=== PATIENT | male | born 1970 | race Caucasian/White ===

== ENCOUNTER 2018-03-27 23:30 | Observation (INO) | payer SELFPAY ==
[2018-03-28 00:16] VITALS: BMI 33.7
[2018-03-28] MEDS ORDERED: Ondansetron HCl/PF 4 MG/2 ML Vial IVP PRN (00:35)
[2018-03-28] MEDS ORDERED: Nitroglycerin 0.4 MG TAB (25 Tab Bottle) PO PRN (00:35)
[2018-03-28] MEDS ORDERED: Ondansetron ODT 4 MG TAB PO PRN (00:35)
[2018-03-28] MEDS ORDERED: Acetaminophen 325 MG TAB PO PRN (00:35)
--- NOTE | 2018-03-28 00:43 | PDOC.FPRHP ---
- History of Present Illness Chief Complaint: chest pain History of Present Illness: Patient is a 47 yo M with PMH significant for CO requiring CABG in December 2017, sent from [facility] ED for atypical chest pain. Patient began having chest "pressure" around 1900. SOB was associated with the pressure as well as as " cold feeling." Patient states it felt like something was "squeezing his windpipe " and he could only take short breaths. States this pain is different from the pain when he had his CO. Patient denies diaphoresis during the episode. The pressure was substernal and did not radiate anywhere. The patient denies palpitations but states that he felt his heart "beating hard." The patient has had a cough for about 2weeks that began dry and has started to become productive. The patient saw a doctor earlier this week who gave him a zpack for the cough. Patient has had swelling in the right leg from where they took the vein for this CABG. In the ED, patient had abnormal EKG X 2, initial Trop neg, and CXR showing small effusion in lower left lung. Patients symptoms overall have improved. The patient denies fever or NVD. - Allergies/Adverse Reactions Allergies Allergy/AdvReac Type Severity Reaction Status Date / Time Penicillins Allergy Severe Anaphylaxis Verified 03/28/18 00:21 Androgenic Anabolic Steroid AdvReac Intermediate Verified 03/28/18 00:21 tramadol AdvReac Verified 03/28/18 00:21 - Home Medications Medication Instructions Recorded Confirmed Type Aspirin [Aspirin Chewable] 81 mg PO DAILY 03/28/18 03/28/18 History Atorvastatin Calcium [Lipitor] 40 mg PO DAILY 03/28/18 03/28/18 History Carvedilol [Coreg] 12.5 mg PO DAILY 03/28/18 03/28/18 History Clopidogrel Bisulfate [Plavix] 75 mg PO DAILY 03/28/18 03/28/18 History Furosemide [Lasix] 40 mg PO DAILY 03/28/18 03/28/18 History Lisinopril 20 mg PO DAILY 03/28/18 03/28/18 History Pioglitazone HCl [Actos] 30 mg PO DAILY 03/28/18 03/28/18 History glipiZIDE [glipiZIDE XL] 5 mg PO QAM- 03/28/18 03/28/18 History metFORMIN [Glucophage] 500 mg PO BID- 03/28/18 03/28/18 History - History PMHx: CO s/p CABG in December 2017, DM, HTN, pleurisy PSHx: CABG 12/2017, appendectomy FHx: noncontributory Social: quit smoking 3 mo ago - smoked 1 pack/day for 26 years; drinks liquor occasionally; denies drug use - Review of Systems General: reports: fatigue. denies: fever/chills, weight/appetite/sleep changes , night sweats Eyes: denies: eye pain, vision changes ENT: denies: nasal congestion, rhinorrhea Respiratory: reports: cough, congestion, shortness of breath. denies: exercise intolerance Cardiovascular: reports: chest pain, edema (to right leg where vein was removed for CABG). denies: palpitation, paroxysmal nocturnal dyspnea, orthopnea Gastrointestinal: denies: nausea, vomiting, diarrhea, constipation, abdominal pain Genitourinary: denies: incontinence, dysuria Skin: denies: rashes, lesions, jaundice Musculoskeletal: denies: pain, tenderness, stiffness Neurological: denies: numbness, syncope, seizure Psychological: denies: anxiety, depression - Vital signs BP: 125/85 HR: 88 RR: 16 Tmax: 98 Pox: 94% on RA Wt: 116.21kg - Physical Exam Constitutional: NAD, awake, alert and oriented, well developed HEENT: normocephalic and atraumatic, PERRLA, EOMI, grossly normal vision, grossly normal hearing, MMM Neck: supple, no JVD -Chest: Mildly TTP around midline incision Heart: RRR, normal S1/S2, no murmurs/rubs/gallops, pulses present, no edema Lungs: CTAB, no respiratory distress, good air movement, no retractions Abdomen: soft, non-tender, bowel sounds present Musculoskeletal: normal structure, normal tone, ROM grossly normal Neurological: no focal deficit, CN II-XII intact Skin: no rash/lesions, good turgor Psychiatric: normal mood and affect FMR H&P: Results - Labs Result Diagrams: 03/28/18 05:49 03/28/18 00:44 - EKG Interpretation EKG: abnormal EKG X 2 at ED - Radiology Interpretation Chest x-ray Additional comment: Small effusion in lower left lung FMR H&P: A/P - Problem List (1) Atypical chest pain Current Visit: Yes Status: Acute Code(s): R07.89 - OTHER CHEST PAIN (2) HTN (hypertension) Current Visit: Yes Status: Acute Code(s): I10 - ESSENTIAL (PRIMARY) HYPERTENSION (3) Pleurisy with effusion Current Visit: Yes Status: Acute Code(s): J90 - PLEURAL EFFUSION, NOT ELSEWHERE CLASSIFIED (4) Diabetes Current Visit: Yes Status: Acute Code(s): E11.9 - TYPE 2 DIABETES MELLITUS WITHOUT COMPLICATIONS (5) GERD (gastroesophageal reflux disease) Current Visit: Yes Status: Acute Code(s): K21.9 - GASTRO-ESOPHAGEAL REFLUX DISEASE WITHOUT ESOPHAGITIS - Plan 1. Atypical Chest pain - Likely 2/2 recent CABG surgery vs HTN - Patient admitted to tele/Obs for Chest pain r/o - Pt currently in no pain - Initial Trop (-): Will Repeat troponin - Initial abnormal EKG: Will repeat - Nitro PRN, give ASA in morning, resume cardiac home meds 2. Pleurisy - likely 2/2 to recent CABG surgery - condition stable right now - O2 PRN to keep O2 sat > 90% - CXR revealed small left effusion; will continue to monitor resp status 3. HTN - pt had not taken his BP medications tonight - Will restart home meds - Will add PRN hydralazine for SBP > 180 as pt initial BP at the ED was 185 - Will continue to monitor BPs 4. DM - Will hold diabetes medications tonight as patient's glucose was 101 and patient is now NPO - Will restart home meds tomorrow AM - hold glipizide due to side effect of hypoglycemia - Will continue to check glucose levels 5. GERD - Will restart PPI Disposition/LOS: DISPO: likely discharge home tomorrow pending negative work up CODE: FULL Case discussed with Dr. Patel FMR H&P: Upper Level - Pertinent history 47 y/o M with CAD s/p CABG in December presents from outside ER with chest discomfort. Pt states just before dinner he had a sensation that his throat was closing and he became SOB. Associated chest tightness and cold feeling. Pt says the pain continued and he went to the ED. There, he was noted to have an abnormal EKG x2 with improved symptoms. His CXR showed cardiomegaly and small L effusion, and initial cardiac markers WNL. He denies any chest pain or radiating pain. He did admit to feeling like his sugar was low and ate some candy prior to ED. Currently he states he has slight chest tightness that is mild. Also admits to being tired. Of note, he was recently on Azithromycin and admitted to a cough 2 weeks ago that has been lingering and recent history of pleurisy after the CABG. - Pertinent findings GEN: NAD CARDIO/chest: RRR, no MRG. Midline scar w/o TTP RESP: LUNGS CTA, no wheezes or ronchi Extremities: no edema, pulses strong Neuro: no focal deficits, CN intact PSYCH: A&O x4, thoughts normal - Plan Date/Time: 03/28/18 0039 I, Jose Rafael Ugalde, have evaluated this patient and agree with findings/plan as outlined by software intern resident. Pertinent changes/additions are listed here. # Atypical Chest Pain- Likely discomfort related to previous CT surgery 3 months ago, but patient has significant RFs. Has had neg troponins x1 and normal CXR in ED with much improved symptoms upon arrival. His severely elevated BPs may also be contributing to his discomfort. Trend trops and repeat EKG. Control vitals. NPO and telemetry for monitoring overnight. # Hypertension Recorded SBP 185 at outside hospital. Will add PRN and home medications with a goal of SBP<180. Continue to monitor through the night. Controlled Currently. # NIDMT2- Will restart home medications. Hold Glipizide as pt has been hypoglycemic (101) and is now NPO. # GERD Resume PPI # FEN/PPX: NPO until morning, Replete lytes as needed. Lovenox for DVT ppx Attending Addendum - Attending Addendum Date/Time: 03/28/18 8861 I personally evaluated the patient and discussed the management with Dr. Godfrey I agree with the History, Examination, Assessment and Plan documented above with any addition or exceptions noted below. 47 yo diabetic male s/p 3 vessel CABG [facility], [place] December patient on cardiac rehab had pleurisy Dx at 6 weeks post op. Patient with atypical CP starting out as sequence of symptoms related initially to hypogylcemia. After peanut butter crackers and candy bar felt airway closing and difficult to take deep breath. Patient evaluated in outside ER center with atypical CP and EKG with abnormal EKG with borderline St segment elevation in non contigiuos chest leads leads by history. Troponins negative PMHX remote HX GERD ,JESSICA with intermittent CPAP use , former smoker, diabetes and hypertension x 3 years. Patient lives in [place], [place] his PCP is [facility] Civil[facility] provider in [place], [place]. Will admit trend EKG and troponin PE notable for friction rub at precordium near PMI will need continued pleurisy treatment and appreciate rec from Cardiology consultation. Consider echocardiogram.
[2018-03-28] MEDS: Nitroglycerin 2% Ointment 1 INCH/1 GM Packet TOP SCH ×3 (00:57→16:27)
[2018-03-28] MEDS ORDERED: hydrALAZINE 20 MG/ML VIAL SLOW IVP PRN ×3 (01:05→01:10)
[2018-03-28 01:12] LABS: ALT (SGPT) 27 U/L (8-55); AST (SGOT) 25 U/L (5-34); Albumin 4.2 g/dL (3.5-5.0); Alkaline Phosphatase 79 U/L (40-150); Anion Gap 14 mmol/L (10-20); BUN (Urea Nitrogen) 12 mg/dL (8.9-20.6); Bilirubin, Total 0.5 mg/dL (0.2-1.2); Calc. Creatinine Clearance 181 mL/min (70-130); Calcium 9.2 mg/dL (7.8-10.44); Carbon Dioxide 24 mmol/L (22-29); Chloride 107 mmol/L (98-107); Estimated GFR-MDRD Greater than 90; Glucose 90 mg/dL (70-105); Potassium 3.7 mmol/L (3.5-5.1); Protein, Total 7.2 g/dL (6.0-8.3); Sodium 141 mmol/L (136-145)
[2018-03-28] MEDS ORDERED: Enoxaparin Sodium 40 MG/0.4 ML SYRINGE SC SCH (01:15)
[2018-03-28 04:39] LABS: CKMB 1.1 ng/mL (0-6.6); Troponin I Less than 0.010 ng/mL (< 0.028)
[2018-03-28 04:44] LABS: CKMB 1.1 ng/mL (0-6.6)
--- NOTE | 2018-03-28 06:13 | PDOC.FM ---
- Subjective Subjective: No acute events overnight. Denies chest pain, headache, SOB, lightheadedness. - Objective MAR Reviewed: Yes Vital Signs & Weight: Vital Signs (12 hours) Temp Pulse Resp BP Pulse Ox 03/28/18 04:30 97.7 F 68 16 141/94 H 95 03/28/18 00:46 98.0 F 88 16 03/27/18 23:41 98.0 F 88 16 126/85 94 L Weight Weight 116.21 kg I&O: 03/26/18 03/27/18 03/28/18 06:59 06:59 06:59 Intake Total 20 Output Total 400 Balance -380 Result Diagrams: 03/28/18 05:49 03/28/18 00:44 <Yanna Arceo - Last Filed: 03/28/18 11:21> - Objective Vital Signs & Weight: Vital Signs (12 hours) Temp Pulse Resp BP BP Pulse Ox 03/28/18 13:41 169/94 H 03/28/18 12:03 72 28 H 178/95 H 97 03/28/18 08:11 98.6 F 76 20 165/94 H 96 03/28/18 08:00 97.7 F 68 16 03/28/18 04:30 97.7 F 68 16 141/94 H 95 Weight Weight 116.21 kg I&O: 03/27/18 03/28/18 03/29/18 06:59 06:59 06:59 Intake Total 20 Output Total 400 Balance -380 Result Diagrams: 03/28/18 05:49 03/28/18 00:44 <Jack Patel - Last Filed: 03/28/18 14:14> Phys Exam - Physical Examination Constitutional: NAD Neck: supple Respiratory: no wheezing friction rub on auscultation, increased with inspiration Gastrointestinal: soft, non-tender Musculoskeletal: no edema Neurological: moves all 4 limbs Psychiatric: A&O x 3 <Yanna Arceo - Last Filed: 03/28/18 11:21> Dx/Plan (1) Atypical chest pain Code(s): R07.89 - OTHER CHEST PAIN Status: Acute (2) Diabetes Code(s): E11.9 - TYPE 2 DIABETES MELLITUS WITHOUT COMPLICATIONS Status: Acute (3) HTN (hypertension) Code(s): I10 - ESSENTIAL (PRIMARY) HYPERTENSION Status: Acute (4) Pleurisy with effusion Code(s): J90 - PLEURAL EFFUSION, NOT ELSEWHERE CLASSIFIED Status: Acute - Plan Plan: 47 yo M with s/p NE with CABG on 12/2017 here with chest pain and SOB 1. Atypical chest pain s/p NE with CABG -CE (-) x3 -Per prior note, abnormal EKG (no records posted in EMR yet): for now will follow up with pending EKG -Continue cardiac home meds but hold coreg for possible NST -Nitroglycerin prn for pain, continue home aspirin and clopidogrel -Dr. Millan consulted, recommendations kindly appreciated -Will hold off on NST and keep NPO pending cardiology recommendations 2. HTN -Restarted home lasix & lisinopril -Currently on Hydralazine PRN 3. History of hypoglycemia 2/2 glipizide -Glucose have been low since admission 101 --> 75 -Discontinued glipizide due to high risk of hypoglycemia 4. HLD -Continue home statin 5. DM -Increased metformin to 1000mg po BID and will continue -Continue pioglitazone -Both meds have low risk of hypoglycemia Dispo: Follow Dr. Millan rx, possible discharge Plan discussed with Dr. Patel <Yanna Arceo - Last Filed: 03/28/18 11:21> (1) Atypical chest pain Code(s): R07.89 - OTHER CHEST PAIN Status: Acute (2) HTN (hypertension) Code(s): I10 - ESSENTIAL (PRIMARY) HYPERTENSION Status: Acute (3) Pleurisy with effusion Code(s): J90 - PLEURAL EFFUSION, NOT ELSEWHERE CLASSIFIED Status: Acute (4) Diabetes Code(s): E11.9 - TYPE 2 DIABETES MELLITUS WITHOUT COMPLICATIONS Status: Acute (5) GERD (gastroesophageal reflux disease) Code(s): K21.9 - GASTRO-ESOPHAGEAL REFLUX DISEASE WITHOUT ESOPHAGITIS Status: Acute <Jack Patel - Last Filed: 03/28/18 14:14> Attending Addendum - Attending Addendum Date/Time: 03/28/18 9683 I personally evaluated the patient and discussed the management with Dr. Arceo I agree with the History, Examination, Assessment and Plan documented above with any addition or exceptions noted below.Await discharge planning until Dr Millan has evaluated patient for any further rec. <Jack Patel - Last Filed: 03/28/18 14:14>
[2018-03-28 06:28] LABS: CKMB 1.3 ng/mL (0-6.6); Troponin I Less than 0.010 ng/mL (< 0.028)
[2018-03-28 06:30] LABS: #Eosinphils 0.1 thou/uL (0.0-0.7); #Lymphocytes 2.5 thou/uL (1.20-3.40); #Monocytes 0.5 thou/uL (0.11-0.59); #Neutrophils 2.4 thou/uL (1.40-6.50); %Basophils 0.3 % (0.0-1.0); %Eosinophils 2.3 % (0.0-10.0); %Lymphocytes 45.1 % (21.0-51.0); %Monocytes 8.5 % (0.0-10.0); %Neutrophils 43.8 % (42.0-75.0); Hemoglobin 13.5 g/dL (14.0-18.0); Mean Corpuscular HGB CONC 34.7 g/dL (32.0-36.0); Mean Corpuscular Hemoglobin 31.4 pg (27.0-31.0); Mean Corpuscular Volume 90.3 fL (78.0-98.0); Mean Platelet Volume 7.6 fL (7.4-10.4); Platelet Count 127 thou/uL (130-400); RBC Distribution Width 12.7 % (11.5-14.5); Red Blood Cell (RBC) Count 4.31 mill/uL (4.70-6.10); White Blood Cell (WBC) Count 5.4 thou/uL (4.8-10.8)
[2018-03-28] MEDS ORDERED: Lisinopril 20 MG TAB PO SCH (09:00)
[2018-03-28] MEDS ORDERED: diphenhydrAMINE 50 MG CAP PO PRN (12:26)
[2018-03-28] MEDS ORDERED: Lidocaine 2% Viscous Solution 20 ML, Aluminum & Magnesium Hydroxide 30 ML, Donnatal Eli... SSW SCH (12:30)
--- NOTE | 2018-03-28 12:50 | PDOC.EVN ---
Event Note - Event Note Event Note: 03/28 @ noon: Nurse called saying patient was re-experiencing same chest pressure and feeling SOB. [place]. O2 was started. Went to examine patient, lungs were clear , saturation at 97%. Complained of "something stuck in his throat making it hard to breathe." Denied anxiety, nausea, abdominal pain, chest pain, dysphagia , reflux. Tele strip was unchanged from 1 hour prior to current episode. Stat EKG ordered which was unchanged from EKG at admission (presence of q waves, no ST elevations). Patient said benadryl helped with symptoms last night. Plan to give pt. GI cocktail & benadryl now and will continue monitoring.
[2018-03-28] MEDS ORDERED: ISOVUE-370 76%-LOCM 1 ML ONE (12:51)
[2018-03-28 13:12] LABS: CKMB 1.4 ng/mL (0-6.6); Troponin I Less than 0.010 ng/mL (< 0.028)
[2018-03-28] MEDS: Furosemide 40 MG TAB PO SCH (13:42)
[2018-03-28] MEDS: Atorvastatin Calcium 40 MG TAB PO SCH (13:42)
[2018-03-28] MEDS: Carvedilol 6.25 MG TAB PO SCH (16:23)
[2018-03-28] MEDS: metFORMIN 500 MG TAB PO SCH (16:25)
[2018-03-28] MEDS: hydrALAZINE 25 MG TAB PO SCH (20:20)
--- NOTE | 2018-03-28 20:34 | CT ---
CTA THORAX WITH CONTRAST: (Computed Tomographic Angiography, chest(noncoronary) with contrast material, and image post processi ng) (PE protocol) DATE: 03/28/2018 TIME: 7:44 p.m. HISTORY: A 47-year-old male with dyspnea and pleuritic chest pain. TECHNIQUE: IV injection of iodinated contrast: Isovue-370 100 mL. Scan acquisition timing attempted to coincide with iodinated contrast bolus reaching maximal density in pulmonary arteries. 3D MIP reconstructions. FINDINGS: There is a left free layering pleural fluid collection that occupies approximately 20% volume of the left hemithoracic cavity. It has moderately high attenuation of 27 HU, suggesting that it may be blo od. No thoracic aortic aneurysm or dissection. Bovine origin of the left common carotid artery from the brachiocephalic artery. Atypically far posterior origin of the left subclavian artery from the aortic arch. Retrosternal hematoma from recent CABG. Sternotomy wires. Nonunited sternotomy defect . Small pericardial effusion. No right-sided pleural effusion or pneumothorax. Atelectasis of all the basilar segments of the left lower lobe. Subsegmental atelectasis in the posterior segment of th e right upper lobe. Trachea and major bronchi are patent and clear. Mild narrowing of the left main stem bronchus. No thoracic aortic aneurysm or dissection. No evidence of pulmonary thromboembolism. IMPRESSION: 1. Left free layering pleural fluid collection is suspected to be hemothorax. 2. No pulmonary thromboembolism. 3. Recently status post coronary artery bypass graft surgery, with small to moderate sized retroster nal anterior mediastinal hematoma. 4. Atelectasis of left lower lobe. anastacio[] POS: [facility]
[2018-03-29] MEDS: Nitroglycerin 2% Ointment 1 INCH/1 GM Packet TOP SCH ×2 (00:28→09:22)
--- NOTE | 2018-03-29 01:40 | CON ---
DATE OF CONSULTATION: 03/28/2018 HISTORY OF PRESENT ILLNESS: Ryan Carey is a 47-year-old white male, who underwent bypass surgery in 12/2017 at [facility] in [place]. He started having chest pain one week prior to that. He described this as a pressure in his chest that would radiate to his left neck and left ear. This would occur with or without exertion and would initially last 1-2 minutes. He then had an episode that lasted hours and went to the emergency room in [place]. He was told that he had a myocardial infarction and ultimately underwent CABG x3. He states he has not had any recurrence of the type of discomfort that he had that took him to the hospital in December. He has been doing very well until the past 2-3 weeks when he has developed a nonproductive cough. He has gone through a round of a Z-Yamil without resolution of his cough. He then had a different type episode yesterday where he felt as if he could not take a deep breath and had some pressure in the central part of his chest, but he said this was nothing like he had prior to his bypass. The pain was somewhat pleuritic in nature. This lasted approximately 1-1/2 hours. Later, he felt as if he was trying to suck air through the straw and feeling that his airway may have been closing. He ultimately went to [facility] Emergency Room and was evaluated then transferred here. He denies any recurrence of his chest discomfort. PAST MEDICAL HISTORY: Hypertension, poorly controlled; hypercholesterolemia; and diabetes. MEDICATIONS: Carvedilol 12.5 mg daily, aspirin 81 daily, Plavix 75 mg daily, atorvastatin 40 daily, furosemide 40 q.a.m., glipizide 5 mg q.a.m., lisinopril 20 daily (he states he has been on this for several years), metformin 500 b.i.d. and Actos 30 daily. ALLERGIES: PENICILLIN, ANABOLIC STEROIDS, TRAMADOL. OPERATIONS: CABG and appendectomy. SOCIAL HISTORY: Smoked less than 1 pack per day, but stopped at the time of bypass surgery. He occasionally drinks. FAMILY HISTORY: Negative for myocardial infarction, CABG or sudden in the immediate family. REVIEW OF SYSTEMS: Twelve-point review of systems otherwise unremarkable. PHYSICAL EXAMINATION: VITAL SIGNS: Blood pressure 169/94, pulse 72. HEENT: PERRL. NECK: Supple. CHEST: Clear. CARDIOVASCULAR: S1, S2 normal, without any S3, S4 or murmurs. Carotid upstrokes normal, without bruits. ABDOMEN: Normal bowel sounds, without tenderness, organomegaly or masses. EXTREMITIES: Revealed no clubbing, cyanosis or edema. NEUROLOGIC: Grossly intact. SKIN: Warm and dry. LABORATORY DATA: EKG revealed normal sinus rhythm and evidence for anterior septal infarct and inferior infarct. Hemoglobin 13.5, hematocrit 38.9, white count 5400, platelets 127,000. Cardiac enzymes x4 are normal. Sodium 141, potassium 3.7, chloride 107, carbon dioxide 24, BUN 12, creatinine 0.83, glucose 101. IMPRESSION: 1. Cough for 2-3 weeks without improvement after a Z-Yamil and now symptoms of feeling of his airway is closing. My initial concern is that these symptoms may be due to lisinopril. I do not feel that his discomfort is directly cardiac related. 2. Recent chest discomfort, which is atypical compared to his pain prior to bypass surgery. He apparently had a left pleural effusion on chest x-ray. Also , I am somewhat concerned with some of the pleuritic type pain that he had and this may be related to pulmonary embolism. Also, pericardial effusion needs to be ruled out with his symptoms with an echocardiogram. 3. Hypertension, difficult to control. He is on a somewhat unusual regimen of only carvedilol once a day and not twice a day. 4. Diabetes. 5. Hypercholesterolemia. 6. Former smoker. PLAN: Lisinopril will be discontinued. I would probably also avoid any ARB drugs with the possibility laryngospasm. Instead, he will be placed on hydralazine 25 t.i.d. and the carvedilol dose will be increased from 12.5 mg daily to 12.5 mg b.i.d. Echocardiogram will be performed to rule out pericardial effusion. He also will undergo a chest CTA to rule out pulmonary emboli as well as to have limited better assessment of his left pleural effusion. MARIBEL
[2018-03-29 05:00] LABS: #Eosinphils 0.2 thou/uL (0.0-0.7); #Lymphocytes 2.7 thou/uL (1.20-3.40); #Monocytes 0.6 thou/uL (0.11-0.59); #Neutrophils 3.4 thou/uL (1.40-6.50); %Basophils 0.5 % (0.0-1.0); %Eosinophils 2.5 % (0.0-10.0); %Lymphocytes 39.2 % (21.0-51.0); %Monocytes 8.6 % (0.0-10.0); %Neutrophils 49.3 % (42.0-75.0); Mean Corpuscular Hemoglobin 31.5 pg (27.0-31.0); Mean Corpuscular Volume 90.2 fL (78.0-98.0); Mean Platelet Volume 7.3 fL (7.4-10.4); Platelet Count 142 thou/uL (130-400); RBC Distribution Width 12.8 % (11.5-14.5); Red Blood Cell (RBC) Count 4.44 mill/uL (4.70-6.10); White Blood Cell (WBC) Count 6.9 thou/uL (4.8-10.8)
--- NOTE | 2018-03-29 05:49 | PDOC.FM ---
- Subjective Subjective: Pt. states his main complaint was upper chest pressure that makes it hard to breath. He denies a history of asthma or COPD. He had been taking lisinopril. He states he use to have bad GERD now he just has an occational episode. Denies trouble swallowing even during an episode. This morning he has no complaints. Denies chest pain, sob, dyspnea, headaches. - Objective MAR Reviewed: Yes Vital Signs & Weight: Vital Signs (12 hours) Temp Pulse Resp BP BP Pulse Ox 03/29/18 04:07 98.1 F 83 20 131/80 92 L 03/28/18 20:20 77 137/82 03/28/18 20:00 98.5 F 86 20 03/28/18 18:28 98.5 F 86 20 116/63 92 L Weight Weight 114.714 kg I&O: 03/27/18 03/28/18 03/29/18 06:59 06:59 06:59 Intake Total 20 950 Output Total 400 2400 Balance -380 -1450 Result Diagrams: 03/29/18 04:45 03/29/18 05:36 <Santos Teresa - Last Filed: 03/29/18 08:48> - Objective Vital Signs & Weight: Vital Signs (12 hours) Temp Pulse Resp BP Pulse Ox 03/29/18 14:18 70 03/29/18 11:13 97.9 F 70 22 H 133/75 93 L Weight Weight 114.714 kg I&O: 03/28/18 03/29/18 03/30/18 06:59 06:59 06:59 Intake Total 20 1190 Output Total 400 2700 Balance -380 -1510 Result Diagrams: 03/29/18 04:45 03/29/18 05:36 <Celeste Robert - Last Filed: 03/29/18 21:38> Phys Exam - Physical Examination Constitutional: NAD HEENT: PERRLA, moist MMs Neck: no JVD, full ROM No pain to palpation of neck, no lypmh nodes present Coarse lung sounds, diffuse rhonchi, worse with expiration Cardiovascular: RRR, no significant murmur Gastrointestinal: soft, non-tender, no distention, positive bowel sounds Musculoskeletal: no edema, pulses present Neurological: normal sensation, moves all 4 limbs Psychiatric: normal affect, A&O x 3 Skin: normal turgor, cap refill <2 seconds <Santos Teresa - Last Filed: 03/29/18 08:48> Dx/Plan (1) Atypical chest pain Code(s): R07.89 - OTHER CHEST PAIN Status: Acute (2) Diabetes Code(s): E11.9 - TYPE 2 DIABETES MELLITUS WITHOUT COMPLICATIONS Status: Acute (3) GERD (gastroesophageal reflux disease) Code(s): K21.9 - GASTRO-ESOPHAGEAL REFLUX DISEASE WITHOUT ESOPHAGITIS Status: Acute (4) HTN (hypertension) Code(s): I10 - ESSENTIAL (PRIMARY) HYPERTENSION Status: Acute - Plan Plan: This is a 47 yo male with PMH of AL s/p cabg 12/2017, DM, HTN Atypical chest pain -Troponins neg x3, EKG abnormal, will continue monitoring. Pt. recently diagnosed with pelurisy. CP may be related to suspected hemothorax vs. GERD. Will discuss with pt. how his pain improved with benadryl and GI cocktail yesterday. May be associated with ACEi vs. GERD vs. reactive airway changes Recent hx of AL s/p CABG -Will continue cardiac home meds this morning Pleurisy -Likely related to CABG. CTA shows small to moderate retrosternal anterior mediastinal hematoma as well as possible hemothorax. Both likely related to CABG and may be the source of the chest pain. HTN -Restarting home meds. PRN hydralazine added, last dose given at 2020 last night. Vitals currently stable DM -Monitor glucose, SSI, NPO, holding home meds currently GERD -Continue PPI Code: FULL Family: none at bedside Prophylaxis: lovenox Disposition: home in 1-2 days <Santos Teresa - Last Filed: 03/29/18 08:48> Attending Addendum - Attending Addendum Date/Time: 03/29/18 5622 I personally evaluated the patient and discussed the management with Dr. Teresa I agree with the History, Examination, Assessment and Plan documented above with any addition or exceptions noted below. Chest pain: Appears related to pericarditis per cards. Will treat with NSAIDs. Cough/congestion: Appears to have allergic rhinitis. Will start mucolytic and singulair. Dispo pending cards rec ABrayMD <Celeste Robert - Last Filed: 03/29/18 21:38>
[2018-03-29 05:58] LABS: Albumin 4.3 g/dL (3.5-5.0); Chloride 106 mmol/L (98-107); Potassium 3.8 mmol/L (3.5-5.1)
[2018-03-29 05:59] LABS: Calcium 9.4 mg/dL (7.8-10.44); Sodium 140 mmol/L (136-145)
[2018-03-29 06:00] LABS: Glucose 111 mg/dL (70-105); Protein, Total 7.3 g/dL (6.0-8.3); Triglycerides 177 mg/dL (Less than 150)
[2018-03-29 06:01] LABS: Anion Gap 15 mmol/L (10-20); Carbon Dioxide 23 mmol/L (22-29)
[2018-03-29 06:02] LABS: Bilirubin, Total 0.5 mg/dL (0.2-1.2)
[2018-03-29 06:03] LABS: Alkaline Phosphatase 81 U/L (40-150); Calc. Creatinine Clearance 154 mL/min (70-130); Estimated GFR-MDRD 84
[2018-03-29 06:04] LABS: BUN (Urea Nitrogen) 16 mg/dL (8.9-20.6)
[2018-03-29 06:05] LABS: AST (SGOT) 24 U/L (5-34); Cardiac Risk 3.4 (Less than 4.5); Cholesterol 127 mg/dl (< 200 Desired); HDL Cholesterol 37 mg/dL (>60 Neg Risk); LDL Cholesterol, Calculated 55 mg/dL
[2018-03-29 06:06] LABS: ALT (SGPT) 30 U/L (8-55)
[2018-03-29] MEDS ORDERED: Clopidogrel Bisulfate 75 MG TAB PO SCH (09:00)
[2018-03-29] MEDS ORDERED: Pioglitazone HCl 15 MG TAB PO SCH (09:00)
[2018-03-29] MEDS: hydrALAZINE 25 MG TAB PO SCH ×2 (09:20→14:18)
[2018-03-29] MEDS: metFORMIN 500 MG TAB PO SCH (09:21)
[2018-03-29] MEDS: Furosemide 40 MG TAB PO SCH (09:21)
[2018-03-29] MEDS: Carvedilol 6.25 MG TAB PO SCH (09:21)
[2018-03-29] MEDS: Atorvastatin Calcium 40 MG TAB PO SCH (09:21)
--- NOTE | 2018-03-29 10:24 | RAD ---
PA AND LATERAL VIEWS CHEST: Date: 03/29/18 HISTORY: Left-sided pleural effusion. FINDINGS: There are changes of median sternotomy. The heart size is borderline. A small left pleural effusion i s seen with adjacent atelectatic change. Right lung is unremarkable. No pneumothoraces are seen. IMPRESSION: Left pleural effusion. POS: [facility]
[2018-03-29 12:41] VITALS: BP 133/75; TEMP 97.9
[2018-03-29] MEDS ORDERED: guaiFENesin 200 MG TAB PO SCH (13:00)
[2018-03-29] MEDS ORDERED: Indomethacin 25 mg Capsule PO SCH (21:00)
[2018-03-29] MEDS ORDERED: Montelukast Sodium 10 mg Tablet PO SCH (21:00)
--- NOTE | 2018-03-30 14:17 | DIS-2 ---
DATE OF ADMISSION: 03/28/2018 DATE OF DISCHARGE: 03/29/2018 ADMITTING PHYSICIAN: Jack Patel MD DISCHARGING PHYSICIAN: Celeste Robert M.D. CONSULTATIONS: Cardiology, Jefe Millan M.D. PROCEDURES: Chest thorax CTA, left free layering pleural fluid collection is suspected for hemothora x. No pulmonary thromboembolism. Recently, status post coronary artery bypass graft surgery with sm [id number] sized retrosternal anterior mediastinal hematoma, atelectasis of lower left lung. Ch est x-ray: Left pleural effusion. PRIMARY DIAGNOSES: Pleurisy and gastroesophageal reflux disease. SECONDARY DIAGNOSES: Myocardial infarction with coronary artery bypass grafting in 12/2017, type 2 d iabetes, hypertension. DISCHARGE MEDICATIONS: 1. Carvedilol 12 mg p.o. b.i.d. with meals. 2. Guaifenesin 400 mg q.4 hours. 3. Hydralazine 25 mg p.o. t.i.d. 4. Indomethacin 50 mg p.o. b.i.d. 5. Singulair 10 mg at bedtime. 6. Protonix 40 mg daily. DISCONTINUED MEDICATIONS: Lisinopril. HOSPITAL COURSE: This is a 47-year-old male with past medical history of IA with CABG in 12/2017, pr esented to the ER from [facility], [place] with chest-like pressure starting since 7:00 p.m. with associate d shortness of breath. The patient stated he felt like somebody was squeezing his throat, and only t akes small breaths. Patient denies dysphagia during these episodes. Episodes would come and go. Th e patient also had cough associated with clear sputum. The patient received a Z-Yamil 1 week earlier f rom the physician for the cough. The patient had abnormal EKG x2 in the ER, troponins negative x3 du e to the cough, and the episodic episodes of throat swelling. We suspected GERD and added Protonix. The patient also had diffuse rhonchi, so we added Singulair. Although history did not match angioed steven, registry np discontinued lisinopril permanently along with the other medications that family we re given. The patient tolerated hospital stay well. I discussed the patient with Dr. Millan, who increased the patient's indomethacin and changed lisinopril to Coreg and hydralazine. DISPOSITION: Stable. DISCHARGE INSTRUCTIONS: 1. Location: Home. 2. Diet: Cardiac and diabetic diet. 3. Activity: As tolerated. 4. Followup: With primary care physician in 1-2 weeks.
== END 2018-03-29 15:41 | disposition home or self-care (01) ==
LOC: 2SW 23:41
PROVIDERS: ADMIT Family Medicine; ATTEND Family Medicine
DX: R09.1 Pleurisy (principal); K21.9 Gastro-esophageal reflux disease without esophagitis; I25.2 Old myocardial infarction; E11.9 Type 2 diabetes mellitus without complications; I10 Essential (primary) hypertension; F17.200 Nicotine dependence, unspecified, uncomplicated; Z88.5 Allergy status to narcotic agent; Z88.0 Allergy status to penicillin; Z79.82 Long term (current) use of aspirin; Z79.02 Long term (current) use of antithrombotics/antiplatelets; Z79.84 Long term (current) use of oral hypoglycemic drugs; Z79.899 Other long term (current) drug therapy
CPT/HCPCS: 36415; 36416; 71046; 71275; 80053; 80061; 82553; 84484; 85025; 93005; 93010; 93306; 94760; 96372; A4216; G0378; J1650